=== PATIENT | female | born 1990 | race Caucasian/White ===

== ENCOUNTER → 2016-11-28 | Outpatient (CLI) | payer BC, OTHER ==
[~2016-11-28] MED LIST: AMOX875T PO; ESTR1 PO; ESTR2 PO; OXYC-57 PO; SPIR100T PO
[2016-11-28 18:45] LABS: URINE APPEARANCE CLEAR (CLEAR); URINE BILIRUBIN NEG (NEG); URINE COLOR YELLOW; URINE NITRITE NEG (NEG); URINE SPECIFIC GRAVITY 1.012 (1.000-1.030); UROBILINOGEN NEG (NEG)
[2016-11-28 18:50] LABS: MANUAL MICROSCOPIC REQUIRED? NO; REVIEW REQ? NO
== END | disposition home or self-care (01) ==
LOC: EDSEX → C.LABSPEC 17:30
PROVIDERS: ATTEND Nurse Practitioner Adult Health
DX: R39.9 Unspecified symptoms and signs involving the genitourinary system (principal)

== ENCOUNTER → 2016-11-29 | Outpatient (CLI) | payer OTHER | END | disposition home or self-care (01) | LOC: C.LABBC 14:04 | PROVIDERS: ATTEND Internal Medicine Endocrinology, Diabetes & Metabolism | DX: F64.1 Dual role transvestism (principal) ==

== ENCOUNTER 2017-02-04 16:22 | Emergency (ER) | payer OTHER ==
[~2017-02-04] VITALS: Ht 177.8 cm; Wt 73.6 kg
[~2017-02-04 16:22] MED LIST changes: -AMOX875T PO; -ESTR1 PO; -ESTR2 PO; -SPIR100T PO
[2017-02-04 16:45] VITALS: BP 117/79; PULSE 78; TEMP 37; O2SAT 97; Ht 177.8 cm; Wt 73.6 kg
[2017-02-04] MEDS ORDERED: AMOXICILLIN/CLAVULANATE TAB 875 MG TAB PO ONE (17:00)
[2017-02-04] MEDS ORDERED: DIPHTHERIA/TETANUS/PERTUSSIS 0.5 ML SYR/VIAL IM. ONE (17:00)
[2017-02-04] MEDS ORDERED: AMOX875T PO (17:01)
[2017-02-04] MEDS ORDERED: ESTR2 PO (17:32)
[2017-02-04] MEDS ORDERED: SPIR100T PO (17:32)
[2017-02-04] MEDS ORDERED: ESTR1 PO (17:32)
--- NOTE | 2017-02-04 19:50 | EMERGENCY ROOM VISIT NOTE ---
History First contact with patient: 16:48 Chief Complaint: BITE Stated Complaint: CAT BITE History of Present Illness The patient is a 26 year old female who presents to the Emergency Room with complaints of cat bite to her right calf that occurred Friday night, roughly 2 days ago. The patient states that she was at a friend's house, when the animal cannot from behind her, and bit the back of her leg. The animal is reportedly up-to-date on its rabies. The patient is unsure of her tetanus status. The area of the bite has become reddened and warm to touch. The patient has not had fever or chills. She rates her discomfort a 7/10. Review of Systems More than 10 systems were reviewed and otherwise negative with the exception of history of present illness. Past Medical/Surgical History No pertinent chronic medical disease Family History No pertinent family history Social History Smoking Status: Never Smoker Current/Historical Medications Scheduled Amoxicillin & Pot Clavulanate (Augmentin 875-125 mg), 1 TAB PO BID Estradiol (Estrace), 1 MG PO DAILY Estradiol (Estrace), 2 MG PO DAILY Spironolactone (Aldactone), 100 MG PO BID Physical Exam Vital Signs Date Time Temp Pulse Resp B/P (MAP) Pulse Ox O2 Delivery O2 Flow Rate FiO2 02/04/17 16:45 37.0 78 18 117/79 97 Room Air Pain Rating (0-10): 2.0 Physical Exam VITALS: Vitals are noted on the nurse's note and reviewed by myself. Vital signs stable. GENERAL: Well-developed, well-nourished, white female, who is in no acute distress and resting comfortably. Patient is cooperative with the examination. HEAD: Normocephalic atraumatic. HEART: Regular rate and rhythm without murmurs gallops or rubs. LUNGS: Clear to auscultation bilaterally without wheezes, rales or rhonchi. No retractions or accessory muscle use. SKIN: The skin was with cellulitis along the posterior right calf proximally. There are puncture wounds consistent with animal bite. No purulent drainage appreciated. Cellulitic area measures approximately 3.5 cm in diameter. Medical Decision & Procedures Medications Administered Medications (Trade) Dose Ordered Sig/Michael Route Start Time Stop Time Status Last Admin Dose Admin Amoxicillin/ Clavulanate Potassium (Augmentin Tab) 875 mg NOW ONCE PO 02/04/17 17:00 9/5/17 17:01 DC 02/04/17 17:07 875 MG Diphtheria/ Pertussis/Tetanus Vacc (Adacel Inj) 0.5 ml ONCE ONCE IM. 02/04/17 17:00 02/04/17 17:01 DC 02/04/17 17:07 0.5 ML ED Course Physical exam and history were performed. Nursing notes, EMR, and Medication List were personally reviewed. Patient appears to have been bitten by a cat roughly 2 days ago. On exam she does have signs of infection. The patient was given Augmentin here in the department. Her tetanus was updated and she does not know when her last tetanus was. I discussed the possibility of rabies postexposure prophylaxis, however the patient was confident that she could get records from the animal's managing cognitive engineer or that the animal can be quarantined. If the patient has any concern about the rabies status she is to return immediately to begin the serious. The patient otherwise appears well for discharge home and will be given a continuation course of Augmentin. Animal bite form was completed and sent to the [facility]. The patient was pleased with plan of care and rated her discomfort a 2/10 at the time of departure. The chart was completed utilizing [employer] Voice Recognition Software. Grammatical errors, random word insertions, pronoun errors, and incomplete sentences are an occasional consequence of this system due to software limitations, ambient noise, and hardware issues. Any formal questions or concerns about the content, text, or information contained within the body of this dictation should be directly addressed to the provider for clarification. . Medical Decision Differential diagnosis: Etiologies such as cellulitis, abscess, MRSA infection, DVT, necrotizing fasciitis, dermatitis, drug eruption, as well as others were entertained.. Impression Primary Impression: Cat bite Additional Impression: Cellulitis Departure Information Dispostion Home / Self-Care Condition GOOD Prescriptions Amoxicillin & Pot Clavulanate (Augmentin 875-125 mg) 1 Tab Tab 1 TAB PO BID for 10 Days, #20 TAB Prov: Cortes Hunt PA-C 02/04/17 Referrals No Doctor, Assigned (PCP) Forms HOME CARE DOCUMENTATION FORM, IMPORTANT VISIT INFORMATION Patient Instructions My [facility] Additional Instructions You were seen and evaluated today on an emergency basis only. This is not a substitute for, or an effort to provide, complete comprehensive medical care. It is not possible to recognize and treat all injuries or illnesses in a single emergency department visit. For this reason it is recommended that you followup with your primary care physician if symptoms persist over the next week. Amoxicillin Clavulanate (Augmentin) 875mg: Take one pill twice daily for 10 days for your infection. All antibiotics can cause diarrhea. If this occurs and you feel worse or it does not resolve in 1-2 days follow up with your doctor or return to the Emergency Department as this could be signs of serious underlying problems. Any medication can cause an allergic reaction, stop the pills immediately and return to the ER for rash, hives, breathing difficulties, or swelling. Return to the ER if you are unable to establish the rabies immunization status of the cat. Your tetanus was updated today. You are welcome to return to the emergency department anytime with new, worsening, or concerning symptoms. Problem Qualifiers
== END 2017-02-04 17:18 | disposition home or self-care (01) ==
LOC: C.EDB 16:23 → C.EDD 17:18
DX: L03.115 Cellulitis of right lower limb (principal); W55.01XA Bitten by cat, initial encounter; Y92.89 Other specified places as the place of occurrence of the external cause